=== PATIENT | female | born 1985 | race Caucasian/White ===

== ENCOUNTER 2019-05-31 19:52 | Emergency (ER) | payer OTHER ==
[~2019-05-31] VITALS: Ht 157.5 cm; Wt 68.0 kg
[~2019-05-31 19:52] MED LIST: ACETAMINOPHEN325 M1 PO; CARISOPRODOL 3350 MG PO; COLACE100 MG PO; FLEXERIL PO; IBUPROFEN 600600 M1 PO; LANOLIN56 GM; LO-OVRAL-281 EACH PO; LYRICA 75 MG CA75 MG PO; MULTI FOR HER1 EACH PO; NORCO 5-325 TA1 EACH PO; OMEPRAZOLE20 MG PO; PRENATAL PO
[2019-05-31] MEDS ORDERED: CYMBALTA60 MG PO (20:30)
[2019-05-31] MEDS ORDERED: VALIUM5 MG PO (20:32)
[2019-05-31] MEDS ORDERED: NEURONTIN 300M300 M2 PO (20:34)
[2019-05-31] MEDS ORDERED: ADDERALL 20 MG20 MG PO (20:35)
[2019-05-31] MEDS ORDERED: CHILDREN'S ZYRT10 M1 PO (20:36)
[2019-05-31] MEDS ORDERED: OMEPRAZOLE 20 M20 M1 PO (20:36)
[2019-05-31] MEDS ORDERED: ULTRAM 50MG TAB50 MG PO ×2 (20:37→21:37)
[2019-05-31] MEDS ORDERED: TRAMADOL 50 MG50 MG PO (20:37)
[2019-05-31 22:42] VITALS: BP 119/74
== END 2019-05-31 22:43 | disposition home or self-care (01) ==
LOC: ER 19:52
DX: S16.1XXA Strain of muscle, fascia and tendon at neck level, initial encounter (principal); S46.912A Strain of unspecified muscle, fascia and tendon at shoulder and upper arm level, left arm, initial encounter; S20.212A Contusion of left front wall of thorax, initial encounter; F07.81 Postconcussional syndrome; K21.9 Gastro-esophageal reflux disease without esophagitis; Z88.1 Allergy status to other antibiotic agents; Z91.040 Latex allergy status; Z88.8 Allergy status to other drugs, medicaments and biological substances; Z79.899 Other long term (current) drug therapy; Z98.890 Other specified postprocedural states; V49.88XA Car occupant (driver) (passenger) injured in other specified transport accidents, initial encounter; Y93.89 Activity, other specified; Y92.413 State road as the place of occurrence of the external cause; Y99.9 Unspecified external cause status